=== PATIENT | female | born 1975 | race Caucasian/White ===

== ENCOUNTER → 2020-01-25 | Outpatient (CLI) | payer OTHER ==
[~2020-01-25] MED LIST: ALBIPROI INH; ALPR1 PO; AMOCLA875 PO; AMOX1XR PO; AMOX500 PO; AMPDEX10CR PO; AZIT250 PO; BIRTH CONTROL PILLS; BUPR150T2 PO; BUSP10 PO; CARI350 PO; CIPR250 PO; CIPR500; CODBUTACEC PO; CONEST.625 PO; CYCL10 PO; DIPH50 PO; DIVA250EC PO; FEXO60; GUAI600ER PO; HYDACE10B PO; HYDACE5 PO; HYDGUAL120 PO; HYDPAM25 PO; IBUP400 PO; IBUP800 PO; K-Dur20 MEQ PO; LEVFLO500 PO; LORA1 PO; METCAR750 PO; MIRCETTE; MULVITA; Mirapex0.75 MG PO; NAPR500 PO; NAPR550 PO; NEOCOLOTSU AU; NITR100CA PO; OXYACE5T PO; POTA20PAC PO; PRED20 PO; PROACE100 PO; PROCODE120 PO; PROM25 PO; SERT100 PO; SERT25 PO; SYMBIAX; TOPI100 PO; TRAM50 PO; VENL75; VENL75ER; YASMINE BCP; ZOLP10 PO; Zyprexa10 MG PO; [UNRECOGNIZED DRUG - OTHER]
[2020-01-25 16:18] LABS: Source, Urine Clean Catch
[2020-01-25 19:02] LABS: Bilirubin, Urine Neg (Neg); Blood, Urine Neg (Neg); Glucose Qualitative, Urine Neg (Neg); Ketones, Urine 1+ (Neg); Leukocyte Esterase, Urine Neg (Neg); Nitrite, Urine Neg (Neg); Protein, Urine Neg (Neg); Specific Gravity, Urine 1.025 (1.003-1.022); Urobilinogen, Urine NORM (Normal)
[2020-01-25 19:11] LABS: Appearance, Urine Clear (Clear); Color, Urine Yellow (P-Yellow)
[2020-01-26 09:44] LABS: Candida species (DNA Probe) Negative (NEGATIVE); G. vaginalis (DNA Probe) Negative (NEGATIVE); T. vaginalis (DNA Probe) Negative (NEGATIVE)
== END | disposition home or self-care (01) ==
LOC: LAB SHORT 13:45 → LAB 13:45
PROVIDERS: Obstetrics & Gynecology
DX: N76.0 Acute vaginitis (principal); R10.13 Epigastric pain
CPT/HCPCS: 81003; 87480; 87510; 87660

== ENCOUNTER → 2020-03-03 | Outpatient (CLI) | payer OTHER ==
[~2020-03-03] MED LIST changes: +GABA100 PO; +Prozac20 MG PO; +SUBOXONE 8 MG-1 EACH SL; +ZYRTEC10 M2 PO
[2020-03-03 13:14] LABS: BASOPHILS ABSOLUTE AUTO 0.09 K/mm3 (0.00-0.23); BASOPHILS PERCENT AUTO 1 % (0-2); EOSINOPHILS ABSOLUTE AUTO 0.33 K/mm3 (0.00-0.68); EOSINOPHILS PERCENT AUTO 5 % (0-6); Hematocrit 42.4 % (33.0-51.0); Hemoglobin 14.2 g/dL (11.5-16.0); IMMATURE GRAN ABSOLUTE AUTO 0.02 K/mm3 (0.00-0.10); IMMATURE GRAN PERCENT AUTO 0 % (0-1); LYMPHOCYTES ABSOLUTE AUTO 2.49 K/mm3 (0.84-5.20); LYMPHOCYTES PERCENT AUTO 36 % (21-46); MONOCYTES ABSOLUTE AUTO 0.53 K/mm3 (0.16-1.47); MONOCYTES PERCENT AUTO 8 % (4-13); Mean Corpuscular HGB 28.5 pg (26.0-34.0); Mean Corpuscular HGB Conc 33.5 g/dL (31.5-36.5); Mean Corpuscular Volume 85 fL (80-100); Mean Platelet Volume 10.6 fL (9.1-12.4); NEUTROPHILS ABSOLUTE AUTO 3.45 K/mm3 (1.96-9.15); NEUTROPHILS PERCENT AUTO 50 % (41-73); Platelet Count 252 K/mm3 (150-400); RDW Coefficient Variation 12.5 % (11.7-14.2); RDW Standard Deviation 38.4 fL (35.1-46.3); Red Blood Cell Count 4.98 M/mm3 (3.80-5.20); White Blood Cell Count 6.91 K/mm3 (4.00-11.30)
[2020-03-03 13:28] LABS: Alanine Aminotransfer (ALT/SGP 38 U/L (12-78); Albumin/Globulin Ratio 1.1 (0.8-1.8); Alk Phos 76 U/L (40-126); Anion Gap 11 mmol/L (6-16); Aspartate Aminotrans (AST/SGOT 17 U/L (12-37); Bilirubin, Total 0.7 mg/dL (0.1-1.0); Blood Urea Nitrogen 16 mg/dL (8-24); Bun/Creatinine Ratio 18.4 (12.0-20.0); CO2, Blood 24 mmol/L (21-32); Chloride, Blood 107 mmol/L (98-108); Creatinine, Blood 0.87 mg/dL (0.40-1.00); Globulin, Blood 3.8 g/dL (2.2-4.0); Glomerular Filtration Rate >60 (60-); Glucose, Blood 102 mg/dL (70-99); Potassium, Blood 3.9 mmol/L (3.5-5.5); Sodium, Blood 142 mmol/L (136-145); Total Protein, Blood 7.8 g/dL (6.4-8.2)
== END | disposition home or self-care (01) ==
LOC: LAB EV 13:09 → LAB SHORT 13:09
PROVIDERS: Physician Assistant
DX: R10.9 Unspecified abdominal pain (principal)
CPT/HCPCS: 80053; 85025

== ENCOUNTER → 2020-03-07 | Outpatient (CLI) | payer OTHER ==
[2020-03-07 14:20] LABS: BASOPHILS ABSOLUTE AUTO 0.11 K/mm3 (0.00-0.23); BASOPHILS PERCENT AUTO 1 % (0-2); EOSINOPHILS ABSOLUTE AUTO 0.37 K/mm3 (0.00-0.68); EOSINOPHILS PERCENT AUTO 4 % (0-6); Hematocrit 46.6 % (33.0-51.0); Hemoglobin 15.2 g/dL (11.5-16.0); IMMATURE GRAN ABSOLUTE AUTO 0.03 K/mm3 (0.00-0.10); IMMATURE GRAN PERCENT AUTO 0 % (0-1); LYMPHOCYTES ABSOLUTE AUTO 2.77 K/mm3 (0.84-5.20); LYMPHOCYTES PERCENT AUTO 32 % (21-46); MONOCYTES ABSOLUTE AUTO 0.56 K/mm3 (0.16-1.47); MONOCYTES PERCENT AUTO 6 % (4-13); Mean Corpuscular HGB 27.5 pg (26.0-34.0); Mean Corpuscular HGB Conc 32.6 g/dL (31.5-36.5); Mean Corpuscular Volume 84 fL (80-100); Mean Platelet Volume 11.2 fL (9.1-12.4); NEUTROPHILS ABSOLUTE AUTO 4.87 K/mm3 (1.96-9.15); NEUTROPHILS PERCENT AUTO 56 % (41-73); Platelet Count 360 K/mm3 (150-400); RDW Coefficient Variation 12.1 % (11.7-14.2); RDW Standard Deviation 37.2 fL (35.1-46.3); Red Blood Cell Count 5.53 M/mm3 (3.80-5.20); White Blood Cell Count 8.71 K/mm3 (4.00-11.30)
[2020-03-07 14:47] LABS: Alanine Aminotransfer (ALT/SGP 40 U/L (12-78); Albumin, Blood 4.2 g/dL (3.4-5.0); Alk Phos 83 U/L (50-136); Anion Gap 8 mmol/L (6-16); Aspartate Aminotrans (AST/SGOT 22 U/L (12-37); Bilirubin, Total 0.9 mg/dL (0.1-1.0); Blood Urea Nitrogen 25 mg/dL (8-24); CHOL/HDL RATIO 7.6; CO2, Blood 23 mmol/L (21-32); Calcium, Blood 9.4 mg/dL (8.5-10.1); Chloride, Blood 106 mmol/L (98-108); Cholesterol 281 mg/dL (50-200); Creatinine, Blood 0.83 mg/dL (0.40-1.00); Glomerular Filtration Rate >60 (60-); Glucose, Blood 131 mg/dL (70-99); HDL Cholesterol 37 mg/dL (>39); LDL/HDL RATIO 4.5; Low Density Lipoprotein Chol 165 mg/dL (0-110); Potassium, Blood 3.8 mmol/L (3.5-5.5); Sodium, Blood 137 mmol/L (136-145); Thyroid Stimulating Hormone 0.649 uIU/mL (0.360-4.800); Total Protein, Blood 8.2 g/dL (6.4-8.2); Triglycerides 393 mg/dL (30-160); Very Low Density Lipoprot Chol 78 mg/dL (6-32)
== END ==
LOC: LAB 12:28 → LAB SHORT 12:28 → LAB FUT 03-07 09:05 → EDSTATUS 03-07 09:05
PROVIDERS: Nurse Practitioner Family
DX: Z00.00 Encounter for general adult medical examination without abnormal findings (principal); Z11.59 Encounter for screening for other viral diseases; F41.9 Anxiety disorder, unspecified; M54.9 Dorsalgia, unspecified; R73.9 Hyperglycemia, unspecified
CPT/HCPCS: 80053; 80061; 83036; 84443; 85025; 86803

== ENCOUNTER 2020-03-11 00:32 | Emergency (ER) | payer OTHER ==
[~2020-03-11] VITALS: Ht 165.1 cm; Wt 112.5 kg
[~2020-03-11 00:32] MED LIST changes: -GABA100 PO; -Prozac20 MG PO; -SUBOXONE 8 MG-1 EACH SL; -ZYRTEC10 M2 PO
[2020-03-11] MEDS ORDERED: SUBOXONE 8 MG-1 EACH SL (00:47)
[2020-03-11] MEDS ORDERED: ZYRTEC10 M2 PO (00:48)
[2020-03-11] MEDS ORDERED: GABA100 PO (00:48)
[2020-03-11] MEDS ORDERED: Prozac20 MG PO (00:48)
== END 2020-03-11 02:26 | disposition home or self-care (01) ==
LOC: ER 00:32
DX: R42 Dizziness and giddiness (principal); F31.9 Bipolar disorder, unspecified; I95.9 Hypotension, unspecified; E78.00 Pure hypercholesterolemia, unspecified; Z88.2 Allergy status to sulfonamides; Z88.1 Allergy status to other antibiotic agents; Z88.8 Allergy status to other drugs, medicaments and biological substances; Z79.899 Other long term (current) drug therapy
CPT/HCPCS: 99284; J7120

== ENCOUNTER 2020-03-24 06:26 | Emergency (ER) | payer SELFPAY ==
[~2020-03-24] VITALS: Ht 165.1 cm; Wt 111.1 kg
[~2020-03-24 06:26] MED LIST changes: +GABA100 PO; +Prozac20 MG PO; +SUBOXONE 8 MG-1 EACH SL; +ZYRTEC10 M2 PO
== END 2020-03-24 07:11 | disposition home or self-care (01) ==
LOC: ER 06:26
DX: S39.011A Strain of muscle, fascia and tendon of abdomen, initial encounter (principal); S80.02XA Contusion of left knee, initial encounter; S20.312A Abrasion of left front wall of thorax, initial encounter; F31.9 Bipolar disorder, unspecified; E78.00 Pure hypercholesterolemia, unspecified; Z88.2 Allergy status to sulfonamides; Z88.1 Allergy status to other antibiotic agents; V89.2XXA Person injured in unspecified motor-vehicle accident, traffic, initial encounter
CPT/HCPCS: 99283; A9270

== ENCOUNTER 2021-01-14 21:34 | Emergency (ER) | payer OTHER ==
[~2021-01-14] VITALS: Ht 165.1 cm; Wt 108.9 kg
[2021-01-14 22:05] LABS: BASOPHILS ABSOLUTE AUTO 0.11 K/mm3 (0.00-0.23); BASOPHILS PERCENT AUTO 1 % (0-2); EOSINOPHILS ABSOLUTE AUTO 0.17 K/mm3 (0.00-0.68); EOSINOPHILS PERCENT AUTO 2 % (0-6); Hematocrit 41.7 % (33.0-51.0); IMMATURE GRAN ABSOLUTE AUTO 0.02 K/mm3 (0.00-0.10); IMMATURE GRAN PERCENT AUTO 0 % (0-1); LYMPHOCYTES ABSOLUTE AUTO 2.46 K/mm3 (0.84-5.20); LYMPHOCYTES PERCENT AUTO 29 % (21-46); MONOCYTES ABSOLUTE AUTO 0.52 K/mm3 (0.16-1.47); MONOCYTES PERCENT AUTO 6 % (4-13); Mean Corpuscular HGB 28.1 pg (26.0-34.0); Mean Corpuscular HGB Conc 33.6 g/dL (31.5-36.5); Mean Corpuscular Volume 84 fL (80-100); Mean Platelet Volume 10.5 fL (9.1-12.4); NEUTROPHILS ABSOLUTE AUTO 5.24 K/mm3 (1.96-9.15); NEUTROPHILS PERCENT AUTO 62 % (41-73); Platelet Count 276 K/mm3 (150-400); RDW Coefficient Variation 12.9 % (11.7-14.2); RDW Standard Deviation 39.4 fL (35.1-46.3); Red Blood Cell Count 4.99 M/mm3 (3.80-5.20); White Blood Cell Count 8.52 K/mm3 (4.00-11.30)
[2021-01-14 22:25] LABS: Alanine Aminotransfer (ALT/SGP 39 U/L (12-78); Albumin, Blood 3.5 g/dL (3.4-5.0); Albumin/Globulin Ratio 0.9 (0.8-1.8); Alk Phos 122 U/L (50-136); Anion Gap 6 mmol/L (6-16); Aspartate Aminotrans (AST/SGOT 33 U/L (12-37); Bilirubin, Total 0.3 mg/dL (0.1-1.0); Blood Urea Nitrogen 10 mg/dL (8-24); Bun/Creatinine Ratio 12.6 (12.0-20.0); CO2, Blood 28 mmol/L (21-32); Calcium, Blood 8.5 mg/dL (8.5-10.1); Chloride, Blood 106 mmol/L (98-108); Glomerular Filtration Rate >60 (60-); Glucose, Blood 136 mg/dL (70-99); Potassium, Blood 3.3 mmol/L (3.5-5.5); Sodium, Blood 140 mmol/L (136-145); Total Protein, Blood 7.5 g/dL (6.4-8.2); Troponin I <0.015 ng/mL (0.000-0.040)
[2021-01-14] MEDS ORDERED: Percocet 5-3251 EACH PO (23:13)
[2021-01-14] MEDS ORDERED: Ativan1 MG PO (23:13)
[2021-01-14] MEDS ORDERED: OMEP20ER PO (23:13)
[2021-01-14] MEDS ORDERED: Bupropion HCl75 MG PO (23:13)
[2021-01-14] MEDS ORDERED: GABA300 PO (23:14)
[2021-01-14] MEDS ORDERED: ZYRTEC10 M2 PO (23:14)
== END 2021-01-15 00:09 | disposition home or self-care (01) ==
LOC: ER 21:34
PROVIDERS: Physician Assistant
DX: R00.0 Tachycardia, unspecified (principal); Z79.899 Other long term (current) drug therapy; Z88.1 Allergy status to other antibiotic agents; Z88.2 Allergy status to sulfonamides; Z87.442 Personal history of urinary calculi
CPT/HCPCS: 36415; 71046; 80053; 84484; 85025; 93005; 93010; 99285-25